=== PATIENT | male | born 1950 | race Caucasian/White ===

== ENCOUNTER 2018-08-27 15:06 | Emergency (ER) | payer MEDICARE, OTHER ==
[2018-08-27] MEDS ORDERED: LABETALOL HYDROCHLORIDE 5 MG/ML SOL IV ONE ×4 (15:26→16:20)
[2018-08-27] MEDS ORDERED: TDAP VACCINE 0.5 ML SUS IM ONE ×2 (15:27→15:52)
[2018-08-27 15:34] LABS: BASOPHILS % (AUTO) 1 % (0-3); EOSINOPHILS % (AUTO) 1 % (0-9); HEMATOCRIT 51 % (39-53); HEMOGLOBIN 16.2 gm/dl (13.5-17.7); MEAN CORPUSCULAR HEMOGLOBIN 28.8 pg (27.0-32.0); MEAN CORPUSCULAR HGB CONC 31.5 gm/dl (32.0-36.0); MEAN CORPUSCULAR VOLUME 91 fL (80-100); MONOCYTES % (AUTO) 7.9 % (0-12); NEUTROPHILS % (AUTO) 74.5 % (37-80)
[2018-08-27 15:54] LABS: ALBUMIN 3.7 gm/dl (3.4-5.0); ALKALINE PHOSPHATASE 85 IU/L (46-116); ALT 29 IU/L (14-63); AST 31 IU/L (15-37); BILIRUBIN,TOTAL 0.4 mg/dl (0.2-1.0); BLOOD UREA NITROGEN 21 mg/dl (7-18); CALCIUM 9.2 mg/dl (8.5-10.1); CARBON DIOXIDE 26.5 mEq/L (21-32); CHLORIDE 104 mMol/L (98-107); CREATININE 1.35 mg/dl (0.80-1.30); GLUCOSE 118 mg/dl (74-106); POTASSIUM 3.8 mMol/L (3.5-5.1); SODIUM 142 mMol/L (136-145); TOTAL PROTEIN 7.8 gm/dl (6.4-8.2); TROP I < 0.017 ng/ml (0.000-0.056)
[2018-08-27] MEDS ORDERED: HYDRALAZINE HYDROCHLORIDE 20 MG/ML SOL IV ONE (16:19)
[2018-08-27] MEDS ORDERED: HYDRALAZINE HYDROCHLORIDE 20 MG/ML SOL ONE (16:20)
[2018-08-27 17:04] VITALS: TEMP 97.5
[2018-08-27 19:51] VITALS: BP 173/99; PULSE 96; RESP 24; O2SAT 96
== END 2018-08-27 19:16 | disposition short-term general hospital (02) | DRG 83 ==
LOC: ED 15:06
DX: S06.339A Contusion and laceration of cerebrum, unspecified, with loss of consciousness of unspecified duration, initial encounter (principal); S12.9XXA Fracture of neck, unspecified, initial encounter; I16.9 Hypertensive crisis, unspecified; I10 Essential (primary) hypertension; W30.89XA Contact with other specified agricultural machinery, initial encounter
CPT/HCPCS: 70450; 72125; 80053; 84443; 84484; 85025; 90471; 90715; 93005; 96374; 96375; 99284; 99285; G0390; J0360; A6232; A6446; J3490